=== PATIENT | female | born 2000 | race American Indian/Alaskan Native ===

== ENCOUNTER 2021-10-06 02:50 | Emergency (ER) | payer MEDICAID ==
[2021-10-06 02:15] LABS: ANION GAP 14.7 mEq/L (7-13)
== END 2021-10-06 03:35 | disposition home or self-care (01) ==
LOC: DL.ED 02:50
DX: O21.9 Vomiting of pregnancy, unspecified (principal); O99.891 Other specified diseases and conditions complicating pregnancy; R19.7 Diarrhea, unspecified; O99.332 Smoking (tobacco) complicating pregnancy, second trimester; F17.210 Nicotine dependence, cigarettes, uncomplicated; Z3A.16 16 weeks gestation of pregnancy; Z20.822 Contact with and (suspected) exposure to COVID-19
CPT/HCPCS: 36415; 80053; 81001; 82150; 83605; 83690; 84702; 85025; 87086; 87088; 87186; 99283; 99284; U0002

== ENCOUNTER 2022-02-09 16:25 | Emergency (ER) | payer MEDICAID ==
[2022-02-09] MEDS ORDERED: Oseltamivir 75 MG Cap PO ONE (16:26)
[2022-02-09] MEDS ORDERED: Oseltamivir 75 MG Cap ONE (18:34)
== END 2022-02-09 16:49 ==
LOC: DL.ED 16:25
DX: Z53.21 Procedure and treatment not carried out due to patient leaving prior to being seen by health care provider (principal)

== ENCOUNTER 2022-04-15 18:08 | Emergency (ER) | payer BC, MEDICAID | END 2022-04-15 18:32 | disposition home or self-care (01) | LOC: DL.ED 18:08 | DX: O92.29 Other disorders of breast associated with pregnancy and the puerperium (principal); O92.70 Unspecified disorders of lactation; Z37.9 Outcome of delivery, unspecified | CPT/HCPCS: 99282; 99283 ==